=== PATIENT | female | born 1970 | race Two or more races ===

== ENCOUNTER 2018-11-28 09:53 | Outpatient (CLI) | payer OTHER ==
[~2018-11-28 09:53] MED LIST: AMBIEN5 MG; ANAFRANIL25 MG; ZOLOFT25 MG
== END 2018-11-28 15:21 | disposition home or self-care (01) ==
LOC: MAMO-SONO 09:53
DX: N60.11 Diffuse cystic mastopathy of right breast (principal); N60.12 Diffuse cystic mastopathy of left breast; Z12.31 Encounter for screening mammogram for malignant neoplasm of breast; N93.0 Postcoital and contact bleeding; N83.01 Follicular cyst of right ovary; N83.02 Follicular cyst of left ovary

== ENCOUNTER 2019-03-15 11:05 | Outpatient (CLI) | payer OTHER | END 2019-03-15 11:18 | disposition home or self-care (01) | LOC: LAB 11:05 | DX: D50.8 Other iron deficiency anemias (principal); D68.8 Other specified coagulation defects ==

== ENCOUNTER 2024-01-01 20:29 | Emergency (ER) | payer OTHER ==
[~2024-01-01] VITALS: Ht 152.4 cm; Wt 69.9 kg
[2024-01-01] MEDS ORDERED: SPIRIVA RESPIMAT4 G1 IH (21:03)
[2024-01-01] MEDS ORDERED: ZYRTEC10 M3 PO (21:03)
[2024-01-01] MEDS ORDERED: PROAIR RESPICL90 MCG (21:04)
[2024-01-01] MEDS ORDERED: ATIVAN1 M1 PO (21:04)
[2024-01-01] MEDS ORDERED: COZAAR100 MG PO (21:05)
[2024-01-01] MEDS ORDERED: LAMOTRIGINE100 MG PO (21:05)
[2024-01-01] MEDS ORDERED: ROSUVASTATIN CAL5 MG PO (21:06)
[2024-01-01 22:18] LABS: HEMOGLOBIN 14.5 g/dL (12.0-15.00); MEAN CELL VOLUME 89.1 fL (80.00-100.00); MEAN CORPUSCULAR HEMOGLOBIN 30.7 pg (27.00-32.0); MEAN CORPUSCULAR HGB CONC 34.5 g/dl (32.0-36.0); PLATELET COUNT 348 K/uL (150-450); RED BLOOD COUNT 4.72 M/uL (4.00-6.00); RED CELL DISTRIBUTION WIDTH 12.8 % (11.5-14.5)
[2024-01-01 22:44] LABS: ALBUMIN 3.9 gm/dL (3.4-5.0); BILIRUBIN TOTAL 0.3 mg/dL (0.3-1.2); CALCIUM 9.2 mg/dL (8.5-10.1); CREATININE SERUM 0.78 mg/dL (0.55-1.02); GFR 76.96; GLOBULINA 3.6 G/DL (2.4-3.5); POTASSIUM 3.95 mEq/L (3.5-5.1); TOTAL PROTEIN 7.5 gm/dL (6.4-8.2)
[2024-01-02] MEDS ORDERED: DICLOFENAC POTA50 MG PO (03:29)
[2024-01-02] MEDS ORDERED: CEPHALEXIN500 MG PO (03:29)
== END 2024-01-02 03:45 ==
LOC: ER 20:29
PROVIDERS: General Practice
DX: R22.30 Localized swelling, mass and lump, unspecified upper limb (principal)
CPT/HCPCS: 36415; 70491; 71260; 99284; Q9965

== ENCOUNTER 2024-01-16 08:19 | Outpatient (CLI) | payer OTHER ==
[~2024-01-16 08:19] MED LIST changes: +ATIVAN1 M1 PO; +CEPHALEXIN500 MG PO; +COZAAR100 MG PO; +DICLOFENAC POTA50 MG PO; +LAMOTRIGINE100 MG PO; +PROAIR RESPICL90 MCG; +ROSUVASTATIN CAL5 MG PO; +SPIRIVA RESPIMAT4 G1 IH; +ZYRTEC10 M3 PO
== END 2024-01-16 08:26 | disposition home or self-care (01) ==
LOC: MAMO-SONO 08:19
PROVIDERS: ATTEND Specialist
DX: R59.0 Localized enlarged lymph nodes (principal)

== ENCOUNTER 2024-03-02 08:10 | Outpatient (CLI) | payer OTHER | END 2024-03-02 08:15 | disposition home or self-care (01) | LOC: NUCLEAR 08:10 | PROVIDERS: ATTEND Internal Medicine Hematology & Oncology | DX: I10 Essential (primary) hypertension (principal); C50.411 Malignant neoplasm of upper-outer quadrant of right female breast ==

== ENCOUNTER 2024-06-20 08:47 | Outpatient (CLI) | payer OTHER | END 2024-06-20 08:52 | disposition home or self-care (01) | LOC: MAMO-SONO 08:47 | PROVIDERS: ATTEND Internal Medicine Hematology & Oncology | DX: C50.411 Malignant neoplasm of upper-outer quadrant of right female breast (principal); Z17.1 Estrogen receptor negative status [ER-]; C77.3 Secondary and unspecified malignant neoplasm of axilla and upper limb lymph nodes ==

== ENCOUNTER 2024-07-02 07:57 | Outpatient (CLI) | payer OTHER | END 2024-07-02 08:05 | disposition home or self-care (01) | LOC: TOM 07:57 | PROVIDERS: ATTEND Internal Medicine Hematology & Oncology | DX: C50.411 Malignant neoplasm of upper-outer quadrant of right female breast (principal); Z17.1 Estrogen receptor negative status [ER-] | CPT/HCPCS: 71260; Q9965 ==

== ENCOUNTER 2024-07-31 10:00 | Outpatient (CLI) | payer OTHER | END 2024-07-31 10:08 | disposition home or self-care (01) | LOC: RAD 10:00 | PROVIDERS: ATTEND Specialist | DX: C50.411 Malignant neoplasm of upper-outer quadrant of right female breast (principal); C77.3 Secondary and unspecified malignant neoplasm of axilla and upper limb lymph nodes ==

== ENCOUNTER 2024-08-02 09:45 | Inpatient (IN) | payer OTHER ==
[~2024-08-02] VITALS: Ht 152.4 cm; Wt 66.7 kg
[2024-08-02] MEDS ORDERED: FAMOTIDINE 40MG (15:00)
[2024-08-02] MEDS ORDERED: PENTOXIFYLLINE400 MG (15:01)
[2024-08-07] MEDS ORDERED: CEFAZOLIN SODIUM 1,000 MG VIAL IV SCH ×2 (09:45→17:00)
[2024-08-07] MEDS ORDERED: OxyCODONE HCL/APAP UD (PERCOCET) PO PRN (11:30)
[2024-08-07] MEDS ORDERED: MEPERIDINE HCL/PF 50 MG/ML VIAL IM PRN (11:30)
[2024-08-07] MEDS ORDERED: POTASSIUM CHLORIDE-0.45% NACL 20 MEQ/1,000 ML PIGGYBAG IV NR (11:30)
[2024-08-07] MEDS ORDERED: MORPHINE SULFATE 4 MG/ML VIAL IV ONE ×2 (11:40→13:10)
[2024-08-07 17:09] VITALS: BP 130/65; O2SAT 96
[2024-08-07] MEDS ORDERED: FAMOTIDINE/PF 20 MG/2 ML VIAL IV PUSH SCH (21:00)
[2024-08-08 00:33] VITALS: BP 131/65; O2SAT 100
[2024-08-08 08:46] VITALS: BP 169/77; O2SAT 98
== END 2024-08-08 11:47 | disposition home or self-care (01) | DRG 582 ==
LOC: O/R 08-07 06:00 → SURH 08-07 09:45 → SURG 08-07 12:42
PROVIDERS: ADMIT Specialist; ATTEND Specialist
PROC: 07T50ZZ Resection of Right Axillary Lymphatic, Open Approach (ICD-10-PCS; 2024-08-07)
PROC: BH00ZZZ Plain Radiography of Right Breast (ICD-10-PCS; 2024-08-07)
PROC: 0HTT0ZZ Resection of Right Breast, Open Approach (ICD-10-PCS; principal; 2024-08-07 11:00)
DX: C50.411 Malignant neoplasm of upper-outer quadrant of right female breast (principal); C77.3 Secondary and unspecified malignant neoplasm of axilla and upper limb lymph nodes; Z20.822 Contact with and (suspected) exposure to COVID-19

== ENCOUNTER 2024-08-16 12:38 | Emergency (ER) | payer OTHER ==
[~2024-08-16] VITALS: Ht 152.4 cm; Wt 66.7 kg
[~2024-08-16 12:38] MED LIST changes: +FAMOTIDINE 40MG; +PENTOXIFYLLINE400 MG
[2024-08-16 13:25] VITALS: BP 117/77; O2SAT 98
[2024-08-16] MEDS ORDERED: FAMOtidine 10 MG/ML (4ML VIAL) IV ONE (13:45)
[2024-08-16] MEDS ORDERED: 0.9 % SODIUM CHLORIDE 1,000 ML IV ONE (13:45)
[2024-08-16] MEDS ORDERED: TAMSULOSIN HCL 0.4 MG CAP PO ONE (13:45)
[2024-08-16] MEDS ORDERED: KETOROLAC TROMETHAMINE 60 MG VIAL IM ONE (13:45)
[2024-08-16] MEDS ORDERED: ONDANSETRON HCL 2 MG/ML VIAL IV ONE (13:45)
[2024-08-16 14:53] LABS: HEMATOCRIT 39.3 % (36.0-45.00); HEMOGLOBIN 13.4 g/dL (12.0-15.00); MEAN CELL VOLUME 100.8 fL (80.00-100.00); MEAN CORPUSCULAR HEMOGLOBIN 34.3 pg (27.00-32.0); MEAN CORPUSCULAR HGB CONC 34.1 g/dl (32.0-36.0); PLATELET COUNT 251 K/uL (150-450); RED CELL DISTRIBUTION WIDTH 13.5 % (11.5-14.5)
[2024-08-16 15:26] LABS: PH,URINE 6.5 (5.0-8.0); URINE APPEARANCE Clear; URINE BILIRRUBIN Negative (NEGATIVE); URINE BLOOD Negative; URINE COLOR Yellow; URINE GLUCOSE Negative (NEGATIVE); URINE KETONE Negative (NEGATIVE); URINE LEUKOCYTE Negative; URINE NITRATE Negative; URINE PROTEIN Negative (NEGATIVE); URINE UROBILINOGEN 0.2 E.U./dl
[2024-08-16 15:30] LABS: URINE BACTERIA 28.9 uL (0.0-1933); URINE EPITHELIAL CELLS 3.2 uL (0.0-38.8); URINE RBC 13.5 uL (0.0-20.8); URINE WBC 9.8 uL (0.0-23.2)
[2024-08-16 16:40] LABS: ALBUMIN 3.2 gm/dL (3.4-5.0); BILIRUBIN TOTAL 0.26 mg/dL (0.3-1.2); CALCIUM 8.4 mg/dL (8.5-10.1); CREATININE SERUM 0.6 mg/dL (0.55-1.02); GFR 103.79; GLOBULINA 2.9 G/DL (2.4-3.5); POTASSIUM 3.57 mEq/L (3.5-5.1); TOTAL PROTEIN 6.1 gm/dL (6.4-8.2)
[2024-08-16] MEDS ORDERED: ONDANSETRON ODT8 MG PO (18:38)
[2024-08-16] MEDS ORDERED: CIPRO500 MG PO (18:38)
== END 2024-08-16 18:48 | disposition home or self-care (01) ==
LOC: ER 12:39
PROVIDERS: General Practice
DX: N20.1 Calculus of ureter (principal); R10.9 Unspecified abdominal pain; Z85.3 Personal history of malignant neoplasm of breast; J45.909 Unspecified asthma, uncomplicated; I10 Essential (primary) hypertension
CPT/HCPCS: 36415; 74177; 96365; 96366; 96372; 99284; J1885; J2405; J3490; J7030; Q9965

== ENCOUNTER 2024-10-25 11:14 | Outpatient (CLI) | payer OTHER ==
[~2024-10-25 11:14] MED LIST changes: +CIPRO500 MG PO; +ONDANSETRON ODT8 MG PO
== END 2024-10-25 11:21 | disposition home or self-care (01) ==
LOC: SONOGRAMA 11:14
PROVIDERS: ATTEND Internal Medicine Hematology & Oncology
DX: R22.1 Localized swelling, mass and lump, neck (principal); L04.0 Acute lymphadenitis of face, head and neck

== ENCOUNTER 2024-12-11 10:13 | Outpatient (CLI) | payer OTHER | END 2024-12-11 10:15 | disposition home or self-care (01) | LOC: RAD 10:13 | PROVIDERS: ATTEND Urology | DX: N20.0 Calculus of kidney (principal) ==

== ENCOUNTER 2025-01-21 10:00 | Outpatient (CLI) | payer OTHER | END 2025-01-21 10:04 | disposition home or self-care (01) | LOC: MAMO-SONO 10:00 | PROVIDERS: ATTEND Specialist | DX: Z90.11 Acquired absence of right breast and nipple (principal); Z85.3 Personal history of malignant neoplasm of breast ==

== ENCOUNTER 2025-04-25 22:35 | Emergency (ER) | payer OTHER ==
[~2025-04-25] VITALS: Ht 152.4 cm; Wt 71.2 kg
[2025-04-25 23:08] VITALS: BP 131/83; O2SAT 96
[2025-04-26] MEDS ORDERED: IPRATROPIUM/ALBUTEROL SULFATE 3 ML AMPUL.NEB IH SCH (02:21)
[2025-04-26] MEDS ORDERED: MAGNESIUM SULFATE IN WATER 4GM/50ML PIGGYBAG IV STA (02:24)
[2025-04-26] MEDS ORDERED: METHYLPREDNISOLONE SOD SUCC 125 MG VIAL IV STA (02:24)
[2025-04-26 02:46] LABS: ABG PH 7.394 (7.35-7.45); ABG PO2 94.6 mmHg (80-100); BICARBONATE 20.6 mmol/l (23-25)
[2025-04-26 02:48] LABS: o2 21 %
[2025-04-26 02:51] LABS: BASO % 0.7 % (0.1-1.2); EOS # 1.10 (0.04-0.54); EOS % 14.4 % (0.7-7.0); LYMPH # 2.18 (1.18-3.74); LYMPH % 28.6 % (19.3-53.1); MEAN PLATELET VOLUME 9.40 fl (9.4-12.4); MONO # 0.76 (0.24-0.82); MONO % 10.0 % (4.7-12.5); NEUT # 3.49 (1.56-6.13); NEUT % 45.6 % (34.0-71.1); RED CELL DISTRIBUTION WIDTH 12.6 % (11.6-14.4)
[2025-04-26 03:11] LABS: ALT/SGPT 36.0 U/L (12-78); AST/SGOT 23.0 U/L (15-37); BILIRUBIN TOTAL 0.42 mg/dL (0.3-1.2); BUN CREA RATIO 13.0 (7.0-25.0); CREATININE SERUM 0.84 mg/dL (0.55-1.02); GFR 70.14; GLOBULINA 3.3 G/DL (2.4-3.5); GLUCOSE FASTING 99.0 mg/dL (65-100); OSMOLALITY SERUM 288.0 MOSM/KG (275-295)
[2025-04-26 04:27] LABS: COVID-19 AG NEGATIVE (NEGATIVE)
== END 2025-04-26 05:12 | disposition home or self-care (01) ==
LOC: ER 22:45
DX: J45.901 Unspecified asthma with (acute) exacerbation (principal); J45.909 Unspecified asthma, uncomplicated; Z20.822 Contact with and (suspected) exposure to COVID-19
CPT/HCPCS: 36415; 71045; 82803; 96365; 99283; J2270; J3490

== ENCOUNTER 2025-05-15 10:19 | Outpatient (CLI) | payer OTHER | END 2025-05-15 10:20 | disposition home or self-care (01) | LOC: NUCLEAR 10:19 | PROVIDERS: ATTEND Internal Medicine Pulmonary Disease | DX: J45.51 Severe persistent asthma with (acute) exacerbation (principal) | CPT/HCPCS: 78582; A9540; A9567 ==

== ENCOUNTER 2025-05-17 08:23 | Outpatient (CLI) | payer OTHER | END 2025-05-17 08:25 | disposition home or self-care (01) | LOC: TOM 08:23 | PROVIDERS: ATTEND Internal Medicine | DX: D05.11 Intraductal carcinoma in situ of right breast (principal); J45.51 Severe persistent asthma with (acute) exacerbation | CPT/HCPCS: 71260; Q9965 ==

== ENCOUNTER 2025-07-21 14:02 | Emergency (ER) | payer OTHER ==
[~2025-07-21] VITALS: Ht 152.4 cm; Wt 65.8 kg
[2025-07-21] MEDS ORDERED: GUAIFEN/DEXTROMETHORPHAN/PE 10 ML BLIST.PACK PO ONE ×2 (15:45→16:02)
[2025-07-21] MEDS ORDERED: LEVALBUTEROL HCL 1.25 MG/3 ML SOLUTION IH SCH (15:45)
[2025-07-21] MEDS ORDERED: MAGNESIUM SULFATE/D5W 100 ML IV ONE (15:45)
[2025-07-21] MEDS ORDERED: IPRATROPIUM BROMIDE 0.5 MG/2.5 ML AMPUL.NEB IH SCH (15:45)
[2025-07-21] MEDS ORDERED: METHYLPREDNISOLONE SOD SUCC 125 MG VIAL IV ONE (15:45)
[2025-07-21] MEDS ORDERED: LEVALBUTEROL HCL 1.25 MG/3 ML SOLUTION IH ONE (15:46)
[2025-07-21] MEDS ORDERED: IPRATROPIUM BROMIDE 0.5 MG/2.5 ML AMPUL.NEB IH ONE (15:47)
[2025-07-21] MEDS ORDERED: MAGNESIUM SULFATE 50% 1,000 MG/2 ML VIAL ONE (16:01)
[2025-07-21] MEDS ORDERED: METHYLPREDNISOLONE SOD SUCC 125 MG VIAL ONE (16:02)
[2025-07-21 16:15] LABS: ABG PH 7.424 (7.35-7.45); ABG PO2 84.2 mmHg (80-100); BICARBONATE 23.6 mmol/l (23-25)
[2025-07-21 16:16] LABS: o2 21 %
[2025-07-21 16:38] LABS: BASO % 0.5 % (0.1-1.2); EOS # 1.32 (0.04-0.54); EOS % 14.4 % (0.7-7.0); LYMPH # 2.06 (1.18-3.74); LYMPH % 22.5 % (19.3-53.1); MEAN PLATELET VOLUME 9.60 fl (9.4-12.4); MONO # 0.65 (0.24-0.82); MONO % 7.1 % (4.7-12.5); NEUT # 5.01 (1.56-6.13); NEUT % 55.0 % (34.0-71.1); RED CELL DISTRIBUTION WIDTH 11.9 % (11.6-14.4)
[2025-07-21 17:09] LABS: ALT/SGPT 37.0 U/L (12-78); AST/SGOT 25.0 U/L (15-37); BILIRUBIN TOTAL 0.58 mg/dL (0.3-1.2); BUN CREA RATIO 9.0 (7.0-25.0); CREATININE SERUM 0.91 mg/dL (0.55-1.02); GFR 63.95; GLOBULINA 3.2 G/DL (2.4-3.5); GLUCOSE FASTING 84.0 mg/dL (65-100); OSMOLALITY SERUM 282.0 MOSM/KG (275-295)
== END 2025-07-21 21:10 | disposition home or self-care (01) ==
LOC: ER 14:03
PROVIDERS: General Practice
DX: J45.901 Unspecified asthma with (acute) exacerbation (principal)

== ENCOUNTER 2025-09-03 12:54 | Outpatient (CLI) | payer OTHER | END 2025-09-03 12:56 | disposition home or self-care (01) | LOC: MAMO-SONO 12:54 | PROVIDERS: ATTEND Specialist | DX: Z90.11 Acquired absence of right breast and nipple (principal); Z85.3 Personal history of malignant neoplasm of breast ==

== ENCOUNTER → 2025-09-26 07:13 | Outpatient (CLI) | payer OTHER | END | disposition home or self-care (01) | LOC: NUCLEAR 07:00 | PROVIDERS: ATTEND Internal Medicine Hematology & Oncology | DX: C50.411 Malignant neoplasm of upper-outer quadrant of right female breast (principal) | CPT/HCPCS: 78815; A9552 ==

== ENCOUNTER 2025-10-02 07:40 | Outpatient (CLI) | payer OTHER | END 2025-10-02 07:56 | disposition home or self-care (01) | LOC: MRI 07:40 | PROVIDERS: ATTEND Internal Medicine Hematology & Oncology | DX: C50.411 Malignant neoplasm of upper-outer quadrant of right female breast (principal); C79.51 Secondary malignant neoplasm of bone; C41.2 Malignant neoplasm of vertebral column; X58.XXXA Exposure to other specified factors, initial encounter; Y93.9 Activity, unspecified; Y92.9 Unspecified place or not applicable; Y99.9 Unspecified external cause status | CPT/HCPCS: 70543; Q9965 ==